=== PATIENT | male | born 1945 | race Caucasian/White ===

== ENCOUNTER 2017-05-23 06:35 | Day surgery (SDC) | payer MEDICARE ==
[2017-05-23 07:40] LABS: PROTHROMBIN TIME - PATIENT 10.5 SEC (9.8-11.6)
[2017-05-23 07:53] LABS: HEMATOCRIT 30.4 % (39.0-51.0); HEMOGLOBIN 10.4 GM/DL (13.0-17.0); MEAN CELL VOLUME 97.7 FL (80.0-100.0); MEAN CORPUSCULAR HEMOGLOBIN 33.5 PG (27.0-34.0); MEAN CORPUSCULAR HGB CONC 34.3 % (32.0-36.0); MEAN PLATELET VOLUME 8.4 FL (7.0-11.0); PLATELET COUNT 200 TH/MM3 (150-450); RED BLOOD COUNT 3.11 MIL/MM3 (4.50-5.90); WHITE BLOOD COUNT 15.6 TH/MM3 (4.0-11.0)
[2017-05-23 08:10] VITALS: BP 126/48; PULSE 63; RESP 16; TEMP 98; O2SAT 93
--- NOTE | 2017-05-23 09:11 | RADRPT ---
EXAM DATE/TIME: 05/23/2017 08:09 [facility] COMPARISON: No previous studies available for comparison. INDICATIONS : Pleural Effusion. Evaluate for Thoracentesis. MEDICAL HISTORY : Hypertension. Diabetes. CAD. CKD. SURGICAL HISTORY : CABG. ENCOUNTER: Initial ACUITY: 1 day PAIN SCORE: 0/10 LOCATION: Left chest MEASUREMENTS: SKIN TO PARIETAL PLEURA: Inadequate fluid SKIN TO MAX SAFE DEPTH: Inadequate fluid ESTIMATED FLUID VOLUME: 199 cc FLUID COMPOSITION: simple FINDINGS: No effusion is noted on the right. There is a 200 ml very inferior left sided simple appearing effusi on. Following a discussion with the patient, patient elected to defer therapeutic thoracentesis at th is time. CONCLUSION: 1. No right-sided effusion. 2. Very small left-sided effusion measuring approximately 200 mL in volume. Juan Negro MD on May 23, 2017 at 9:01 Board Certified Radiologist. This report was verified electronically.
== END 2017-05-23 08:48 | disposition home or self-care (01) ==
LOC: HRAD 06:35 → HRIP 06:58 → HRAD 08:48
PROVIDERS: ATTEND Internal Medicine Critical Care Medicine
DX: J90 Pleural effusion, not elsewhere classified (principal); I25.10 Atherosclerotic heart disease of native coronary artery without angina pectoris; I12.9 Hypertensive chronic kidney disease with stage 1 through stage 4 chronic kidney disease, or unspecified chronic kidney disease; N18.9 Chronic kidney disease, unspecified; E11.22 Type 2 diabetes mellitus with diabetic chronic kidney disease; Z95.1 Presence of aortocoronary bypass graft
CPT/HCPCS: 36415; 76604; 85027; 85610; 85730

== ENCOUNTER 2017-07-07 07:18 | Day surgery (SDC) | payer MEDICARE ==
[2017-07-07 09:50] VITALS: BP 153/55; PULSE 60; RESP 18; TEMP 97.4; O2SAT 96
[2017-07-07] MEDS ORDERED: LIDOCAINE HCL 1% PF 30 ML VIAL ONE (09:51)
--- NOTE | 2017-07-07 09:55 | RADRPT ---
EXAM DATE/TIME: 07/07/2017 09:35 [facility] COMPARISON: No previous studies available for comparison. INDICATIONS : Post left side thoracentesis. MEDICAL HISTORY : Hypertension. Diabetes mellitus type II. Dialysis. SURGICAL HISTORY : Pacemaker. CABG. ENCOUNTER: Initial ACUITY: 1 day PAIN SCORE: 0/10 LOCATION: Bilateral chest FINDINGS: Expiratory view of the chest postthoracentesis demonstrates no evidence of pneumothorax. There is so me crowding of the bronchopulmonary markings in the lower lungs bilaterally possibly due to expirator y nature of the film. Coronary artery stent, sternal wire sutures, and cardiac pacer leads in place. Both hemidiaphragms are well delineated. The heart is normal in size. CONCLUSION: No evidence of pneumothorax. Jersey Julian MD on July 07, 2017 at 9:51 Board Certified Radiologist. This report was verified electronically.
[2017-07-07 10:05] VITALS: BP 153/61; PULSE 67; RESP 18; O2SAT 96
--- NOTE | 2017-07-07 10:11 | RADRPT ---
EXAM DATE/TIME: 07/07/2017 08:32 [facility] COMPARISON: No previous studies available for comparison. [facility] Jun [facility] 2017. INDICATIONS : Left pleural effusion. MEDICAL HISTORY : Hypertension. Diabetes. Pleural effusion. Dialysis. SURGICAL HISTORY : Cardiac bypass. Pacemaker. ENCOUNTER: Initial ACUITY: 1 month PAIN SCORE: 0/10 LOCATION: Left chest FLUID: Total volume of 700 cc of clear, red fluid was removed. Fluid was discarded. Thoracentesis was therapeutic only. TECHNIQUE: 1. Ultrasound guidance for thoracentesis. 2. Thoracentesis. The risks, benefits, and alternatives to ultrasound guided thoracentesis were explained to the patien t in lay simple terms, including the risk of bleeding and infection. Written and verbal informed con sent was obtained. Appropriate area for thoracentesis was marked under ultrasound guidance with the patient in the uprig ht position. Overlying skin was prepped and draped in the usual sterile fashion and with local anest hetic, a dermatotomy was made with an 11 blade scalpel. A 6 [place] thoracentesis catheter was placed in the pleural space and fluid was removed. Catheter was then removed and a sterile dressing applie d. There were no immediate complications. The patient tolerated the procedure well and the left the ultrasound suite in stable condition. Chest radiograph is to be obtained. CONCLUSION: Uncomplicated ultrasound guided thoracentesis. Ethan Spencer MD on July 07, 2017 at 10:08 Board Certified Radiologist. This report was verified electronically.
== END 2017-07-07 10:35 | disposition home or self-care (01) ==
LOC: HRAD 07:18 → HRIP 07:21 → HRAD 10:35
PROVIDERS: ATTEND Internal Medicine Critical Care Medicine
DX: J90 Pleural effusion, not elsewhere classified (principal); I10 Essential (primary) hypertension; E11.9 Type 2 diabetes mellitus without complications; Z95.0 Presence of cardiac pacemaker; Z95.1 Presence of aortocoronary bypass graft
CPT/HCPCS: 32555; 71045; C1729